=== PATIENT | male | born 1970 | race Caucasian/White ===

== ENCOUNTER 2023-03-08 12:25 | Outpatient (CLI) | payer OTHER | END 2023-03-08 12:26 | disposition home or self-care (01) | LOC: BICMRI 12:25 | DX: Z01.89 Encounter for other specified special examinations (principal); M19.012 Primary osteoarthritis, left shoulder; M75.102 Unspecified rotator cuff tear or rupture of left shoulder, not specified as traumatic; M75.101 Unspecified rotator cuff tear or rupture of right shoulder, not specified as traumatic; M19.011 Primary osteoarthritis, right shoulder | CPT/HCPCS: 70140 ==